=== PATIENT | female | born 1990 | race Caucasian/White ===

== ENCOUNTER 2018-10-06 13:02 | Inpatient (IN) | payer BC ==
[2018-10-06] MEDS ORDERED: Buffered Lidocaine 1% SYRIN* 1 ML/SYRINGE INTRADERM ONE (15:10)
[2018-10-06] MEDS ORDERED: Lactated Ringers 1000 ML Bag* 1,000 ML IV ONE (15:10)
[2018-10-06] MEDS ORDERED: Penicillin G Potassium IV* 5,000,000 UNITS in NS 0.9% 100 ML* 100 ML IVPB ONE (15:30)
[2018-10-06] MEDS ORDERED: Lactated Ringers 1000 ML Bag* 1,000 ML IV SCH (16:00)
[2018-10-06] MEDS ORDERED: Oxytocin in LR* 20 UNITS/1,000 ML BAG IVPB SCH (16:00)
[2018-10-06 16:39] LABS: ABS Basophils 0.1 10^3/ul (0-0.2); ABS Eosinophils 0.1 10^3/ul (0-0.6); ABS Lymphocytes 2.5 10^3/ul (1.0-4.8); ABS Monocytes 0.7 10^3/ul (0-0.8); ABS Nucleated RBC 0 10^3/ul; Eosinophil % 0.7 %; Hematocrit 41 % (33-41); Hemoglobin 13.8 g/dL (12.0-16.0); Lymphocyte % 17.4 %; Mean Corpuscular HGB Conc 33 g/dL (31-36); Mean Corpuscular Hemoglobin 28 pg (27-31); Mean Corpuscular Volume 85 fL (80-97); Mean Platelet Volume 9.2 fL (7.4-10.4); Nucleated Red Blood Cells % 0.1; Platelet Count 270 10^3/uL (150-450); Red Blood Count 4.87 10^6 /uL (3.70-4.87); Red Cell Distribution Width 13 % (10.5-15); White Blood Count 14.4 10^3/uL (3.5-10.8)
[2018-10-06] MEDS: Penicillin G Potassium IV* 2,500,000 UNITS in NS 0.9% 100 ML* 100 ML IVPB SCH (20:42)
[2018-10-07] MEDS ORDERED: Promethazine INJ(RESTRICTED)* 25 MG/ML 1 ML VIAL IV PRN (00:02)
[2018-10-07] MEDS ORDERED: Nalbuphine* 10 MG/ML 1 ML VIAL IV PRN (00:02)
--- NOTE | 2018-10-07 00:09 | PN ---
Progress Note - Progress Note Date of Service: 10/07/18 SOAP: Subjective: [Pt reports ctx are stronger than this AM but spaced out since stopping pitocin. +FM,+bloody show, + LOF] Objective: [BP:131/74, P:109, R:20, T:97.8. FHT: 125 bpm, + accels, -decels, moderate variability, ctx q 5-7min.] Assessment: [28 y.o. , PPROM, cat I NST] Plan: [1) Therapeutic rest 2) Intermittent monitoring per protocol 3) Questions answered to patient satisfaction]
[2018-10-07] MEDS: Penicillin G Potassium IV* 2,500,000 UNITS in NS 0.9% 100 ML* 100 ML IVPB SCH ×5 (04:45→21:06)
[2018-10-07] MEDS ORDERED: OBEPIDURAL* 250 ML EPIDURAL ONE (13:32)
[2018-10-07] MEDS ORDERED: Bupivacaine 0.25% SDV PF* 10 ML VIAL INJ ONE (14:17)
--- NOTE | 2018-10-07 14:22 | HP ---
General Information - Reason for Visit Patient presents to LD with SROM. - General Information Maternal Age: 28 Grav: 1 Para: 0 SAB: 0 IEA: 0 Estimated Due Date: 11/03/18 Determined By: LMP Gestational Age in Weeks/Days: 36 06/29 Maternal Blood Type and Rh: A Positive - Results this Serology/RPR Result: Non-Reactive Rubella Result: Non-Immune HBsAg Result: Negative HIV Result: Negative Past Medical History Delivery History: See Records - Pertinent Past Medical History: See Records Past Medical History Comment: Asthma Obesity BMI 52 Pertinent Past Surgical History: See Records Past Surgical History Comment: Cholecystectomy Pertinent Family History: See Records - HTN, DM, Stroke and Thyroid disease - Antepartal Records Antepartal Records: Reviewed, Complicated by: - Obesity, GDM A1 Review of Systems Constitutional: Comfortable CV Complaint: No Respiratory: Shortness of Breath: No Gastrointestinal: No Nausea/Vomiting, Normal Bowel Movement Genitourinary: Leaking Fluid, No Dysuria, No Bleeding Musculoskeletal: No Complaint, No Epigastric Pain Neurological: No Headache, No Visual Changes Movement: Normal Exam Allergies/Adverse Reactions: Allergies diphenhydramine [From Benadryl] Allergy (Intermediate, Verified 10/06/18 13:58) Difficulty Breathing triggers asthma attack ENVIRONMENTAL/SEASONAL HAYFEVER Allergy (Uncoded 03/22/13 07:39) CONGESTION,SNEEZE,EYES WATER AND ITCH CATS,DOGS,POLLEN,GRASS Lab Values - Entire Visit: Laboratory Tests 10/06/18 10/06/18 10/06/18 13:30 16:34 16:34 WBC 14.4 H RBC 4.87 Hgb 13.8 Hct 41 MCV 85 MCH 28 MCHC 33 RDW 13 Plt Count 270 MPV 9.2 Neut % (Auto) 76.8 Lymph % (Auto) 17.4 Harrison % (Auto) 4.6 Eos % (Auto) 0.7 Baso % (Auto) 0.5 Absolute Neuts (auto) 11.0 H Absolute Lymphs (auto) 2.5 Absolute Monos (auto) 0.7 Absolute Eos (auto) 0.1 Absolute Basos (auto) 0.1 Absolute Nucleated RBC 0 Nucleated RBC % 0.1 Vag Amniotic Fld Detect Positive Blood Type A Positive Antibody Screen Negative - Measurements Height: 5 ft 4 in Weight: 337 lb Weight in lbs: [phone] Body Mass Index (BMI): 57.8 Pre- Weight: 306 lb Weight Gained This : 31 lbs and 0 ozs - Exam Breast: Breast Exam Deferred CVA: No CVA Tenderness Extremities: No Edema Heart: Normal Rhythm/Heart Sounds HEENT: No Significant Findings Lungs: Clear Bilaterally Rectal: Rectal Exam Deferred Reflexes: DTR 2+ Thyroid: No Thyromegaly - Abdominal Exam Abdomen Exam: Non-Tender - Ultrasound/Biophysical Profile Biophysical Profile: Normal Reactive NST Targeted Exam Findings See L&D Outpatient Visit Provider Note for Findings: N/A Cervical Exam: 1cm Effacement: <50% Station: -1 Presenting Part: Vertex Membrane Status: SROM Amniotic Fluid Evaluation: Positive ROM Plus Bleeding/Discharge: None EFM Findings - External Monitor Findings Baseline Heart Rate: 140 External Monitor Findings: Accelerations Present Contractions: Irregular, Mild, < 45 Seconds Assessment/Plan - Assessment Patient is 36 1/7 weeks EGA, GBS positive, with BMI of 52 and GDM A1 with spontaneous ruptured membranes. - Obstetrical Risk Factors Obstetrical Risk Factors: GBS Positive, Obesity, Gestational Diabetes - Plan Plan: Induction, IV Hydration, Antibiotic Prophylaxis - Date/Time of Admission Date of Admission: 10/06/18 Time of Admission: 14:50
[2018-10-08] MEDS ORDERED: Glycerin ADULT SUPP PR PRN (00:14)
[2018-10-08] MEDS ORDERED: Acetaminophen TAB* 325 MG PO PRN (00:14)
[2018-10-08] MEDS ORDERED: Dibucaine 1% 28.35 GM TUBE PR PRN (00:14)
[2018-10-08] MEDS ORDERED: Witch Hazel PAD* JAR TOPICAL PRN (00:14)
--- NOTE | 2018-10-08 00:40 | PROCNOTE ---
[facility] OB: Delivery Note - Delivery A Date of : 10/07/18 [place] Sex: Male [place] Weight at : 6 lb 11 oz Score 1 Minute: 8 Score 5 Minutes: 9 Gestational Age in Weeks and Days at Delivery: 36 Weeks and 1 Days Delivery Method: Spontaneous Vaginal Amniotic Fluid: Clear Estimated Blood Loss: 200 Anesthesia/Analgesia: CEI for Labor Delivered By: Gypsy Duff - Nursery Level of Nursery: Regular/Bedside - Perineum Perineal Injury: None/Intact Perineal Repair: None - Events Delivery Events of Note: Pitocin During Labor, Full Course of Antibiotics, ROM > 24 Hours, Internal Scalp EKG, IUPC Use - Additional Delivery Notes Additional Delivery Notes: Pt underwent induction for PROM. She eventually went into active labor, received an epidural and progressed to fully dilated. She pushed for almost 1.5hrs to deliver the 's head in Direct OA position. The body delivered through a nucal cord over intact perineum. The baby was placed on mom's abdomen. After more than a minute the cord was clamped x2 and cut. The placenta delivered with gentle cord traction and fundal massage and appeared intact. Fundus was firm, there was good hemostasis and mom and baby were stable at time of note.
[2018-10-08] MEDS ORDERED: Lactated Ringers 1000 ML Bag* 1,000 ML IV SCH ×2 (01:00→07:00)
[2018-10-08] MEDS ORDERED: Sodium Citrate/Citric Acid* 15 ML UDC PO PRN (06:37)
[2018-10-08] MEDS ORDERED: Lactated Ringers 1000 ML Bag* 1,000 ML IV ONE (06:37)
[2018-10-08] MEDS ORDERED: Famotidine TAB* 20 MG PO PRN (06:37)
[2018-10-08] MEDS ORDERED: OBEPIDURAL* 250 ML EPIDURAL SCH (07:00)
[2018-10-08 08:08] LABS: ABS Basophils 0.2 10^3/ul (0-0.2); ABS Eosinophils 0 10^3/ul (0-0.6); ABS Lymphocytes 2.7 10^3/ul (1.0-4.8); ABS Monocytes 1.5 10^3/ul (0-0.8); ABS Neutrophils 15.3 10^3/ul (1.5-7.7); ABS Nucleated RBC 0 10^3/ul; Eosinophil % 0.2 %; Hematocrit 37 % (33-41); Hemoglobin 12.3 g/dL (12.0-16.0); Lymphocyte % 13.9 %; Mean Corpuscular HGB Conc 33 g/dL (31-36); Mean Corpuscular Hemoglobin 28 pg (27-31); Mean Corpuscular Volume 85 fL (80-97); Mean Platelet Volume 9.1 fL (7.4-10.4); Nucleated Red Blood Cells % 0; Platelet Count 206 10^3/uL (150-450); Red Blood Count 4.35 10^6 /uL (3.70-4.87); Red Cell Distribution Width 13 % (10.5-15); White Blood Count 19.7 10^3/uL (3.5-10.8)
[2018-10-08] MEDS ORDERED: Simethicone TAB* 80 MG TAB.CHEW PO SCH (08:30)
[2018-10-08] MEDS: Docusate CAP* 100 MG PO SCH ×3 (08:31→21:14)
[2018-10-08] MEDS: Ibuprofen TAB* 600 MG PO PRN ×2 (08:31→16:18)
[2018-10-09] MEDS: Ibuprofen TAB* 600 MG PO PRN ×4 (02:01→20:37)
[2018-10-09] MEDS ORDERED: Measles, Mumps,Rubella VACC* 0.5 ML/VIAL SUBCUT ONE (02:04)
[2018-10-09] MEDS: Docusate CAP* 100 MG PO SCH ×3 (07:59→20:37)
[2018-10-09] MEDS ORDERED: Ferrous Gluconate TAB* 324 MG TAB PO SCH (09:00)
[2018-10-10 08:13] VITALS: BP 127/64
[2018-10-10] MEDS: Docusate CAP* 100 MG PO SCH (10:07)
[2018-10-10] MEDS: Ibuprofen TAB* 600 MG PO PRN (10:07)
== END 2018-10-10 12:11 | disposition home or self-care (01) | DRG 560 ==
LOC: MCHOBOUT 13:02 → MCHOB 14:44
PROVIDERS: ADMIT Obstetrics & Gynecology; ATTEND Obstetrics & Gynecology
PROC: 10E0XZZ Delivery of Products of Conception, External Approach (ICD-10-PCS; principal; 2018-10-06)
PROC: 10H07YZ Insertion of Other Device into Products of Conception, Via Natural or Artificial Opening (ICD-10-PCS; 2018-10-06)
PROC: 4A1H7CZ Monitoring of Products of Conception, Cardiac Rate, Via Natural or Artificial Opening (ICD-10-PCS; 2018-10-06)
PROC: 10H073Z Insertion of Monitoring Electrode into Products of Conception, Via Natural or Artificial Opening (ICD-10-PCS; 2018-10-06)
DX: O42.013 Preterm premature rupture of membranes, onset of labor within 24 hours of rupture, third trimester (principal); Z37.0 Single live birth; O24.429 Gestational diabetes mellitus in childbirth, unspecified control; O99.214 Obesity complicating childbirth; O99.824 Streptococcus B carrier state complicating childbirth; O69.81X0 Labor and delivery complicated by cord around neck, without compression, not applicable or unspecified; Z3A.36 36 weeks gestation of pregnancy; Z88.8 Allergy status to other drugs, medicaments and biological substances
CPT/HCPCS: 36415; 84112; 85025; 86850; 86900; 86901; 90707; A9270-GY; J2540; J3490